=== PATIENT | male | born 1945 | race Caucasian/White ===

== ENCOUNTER 2017-02-04 10:21 | Emergency (ER) | payer BC, MEDICARE ==
[2017-02-04 10:32] VITALS: BP 183/101
[2017-02-04] MEDS ORDERED: Lidocaine 2% PF * 5 ML VIAL INJ ONE (10:36)
--- NOTE | 2017-02-04 11:58 | UC ---
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 CUT ON BROKEN PIECE OF GLASS. - History Of Current Complaint Chief Complaint: UCLaceration Stated Complaint: LACERATION Time Seen by Provider: 02/04/17 10:25 Hx Obtained From: Patient Laceration Location: Finger Mechanism Of Injury: Sharp Trauma Onset/Duration: Sudden Onset, Lasting Minutes Severity: Mild Pain Intensity: 0 Pain Scale Used: 0-10 Numeric Related History: Dominant Hand Right - Allergies/Home Medications Allergies/Adverse Reactions: Allergies Allergy/AdvReac Type Severity Reaction Status Date / Time No Known Allergies Allergy Verified 02/04/17 10:27 Home Medications: Home Medications Coenzyme Q10 (Ubidecarenone) [Co-Enzyme Q10] 100 mg PO DAILY 02/04/17 [History Confirmed 02/04/17] Jasper [Jasper Hinojosa] 550 mg PO DAILY 02/04/17 [History Confirmed 02/04/17] [place]-3 Fatty Acids (Nf) [Fish Oil (NF)] 1,000 mg PO DAILY 02/04/17 [History Confirmed 02/04/17] Vitamin E CAP* 400 unit PO DAILY 02/04/17 [History Confirmed 02/04/17] PMH/Surg Hx/FS Hx/Imm Hx Previously Healthy: Yes - Surgical History Surgical History: Yes Surgery Procedure, Year, and Place: Right Inguinal Herniorrhaphy, 12/2016, [place]; Cardiac Ablation and Stent, ~1999 - Family History Known Family History: Negative: Blood Disorder - Social History Occupation: Student Lives: With Family Alcohol Use: Daily Alcohol Amount: 1-2 glasses of wine Substance Use Type: None Smoking Status (MU): Never Smoked Tobacco - Immunization History Most Recent Tetanus Shot: ~2013 Review of Systems Constitutional: Negative Skin: Other - LACERATION RIGHT FIFTH FINGER Eyes: Negative ENT: Negative Respiratory: Negative Cardiovascular: Negative Gastrointestinal: Negative Genitourinary: Negative Motor: Negative Neurovascular: Negative Musculoskeletal: Negative Neurological: Negative Psychological: Negative Is Patient Immunocompromised?: No All Other Systems Reviewed And Are Negative: Yes Physical Exam Triage Information Reviewed: Yes Appearance: Well-Appearing, No Pain Distress, Well-Nourished Vital Signs: Initial Vital Signs Temp 98 F 02/04/17 10:27 Pulse 96 02/04/17 10:27 Resp 16 02/04/17 10:27 BP 183/101 02/04/17 10:27 Vital Signs Reviewed: Yes Eye Exam: Normal ENT Exam: Normal ENT: Positive: Normal ENT inspection Dental Exam: Normal Neck exam: Normal Neck: Positive: Supple, Nontender, No Lymphadenopathy Respiratory Exam: Normal Respiratory: Positive: Chest non-tender, Lungs clear, Normal breath sounds, No respiratory distress, No accessory muscle use Cardiovascular Exam: Normal Cardiovascular: Positive: RRR, No Murmur, Pulses Normal Abdominal Exam: Normal Musculoskeletal Exam: Normal Musculoskeletal: Positive: Strength Intact, ROM Intact Neurological Exam: Normal Psychological Exam: Normal Skin: Positive: Other - LACERATION RIGHT DORSAL DISTAL FIFTH FINGER Laceration Repair - Laceration Repair 1 Description: Linear Laceration Size After Repair: Length (cm) - 1.5, Width (mm) - 2, Depth (mm) - 2 Cleansing Completed Via Routine Prep: Yes Irrigation With Pressure Irrigation Device: Yes Closure Material: Sutures - 3X PROLENE Closure Method: Single Layer Suture Of: Skin Suture Type: Prolene Laceration Course/Dx - Differential Dx - Laceration/Wound Differental Diagnoses: Laceration Provider Diagnoses: RIGHT FIFTH FINGER LACERATION WITH REPAIR Discharge - Discharge Plan Condition: Stable Disposition: HOME Patient Education Materials: Finger Laceration (ED) Referrals: Non Staff,Doctor [Primary Care Provider] - Additional Instructions: PLEASE HAVE SUTURES REMOVED IN TEN DAYS
== END 2017-02-04 11:05 | disposition home or self-care (01) ==
LOC: UCCORT 10:21
DX: S61.216A Laceration without foreign body of right little finger without damage to nail, initial encounter (principal); W45.8XXA Other foreign body or object entering through skin, initial encounter; Y92.9 Unspecified place or not applicable
CPT/HCPCS: 12001; 99211; G0463